=== PATIENT | female | born 1995 | race Hispanic/Latino ===

== ENCOUNTER 2017-06-01 09:22 | Emergency (ER) | payer OTHER ==
--- NOTE | 2017-06-01 11:17 | RAD ---
RIGHT WRIST THREE VIEWS: History: Pain. No trauma, no fall. Comparison: None. FINDINGS: There is negative ulnar variance. 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 Scaphoid is unremarkable. 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 POS: MAULIK
== END 2017-06-01 11:30 | disposition home or self-care (01) ==
LOC: ERS 09:22
DX: O9A.211 Injury, poisoning and certain other consequences of external causes complicating pregnancy, first trimester (principal); S63.501A Unspecified sprain of right wrist, initial encounter; O99.341 Other mental disorders complicating pregnancy, first trimester; F41.9 Anxiety disorder, unspecified; F31.9 Bipolar disorder, unspecified; F90.9 Attention-deficit hyperactivity disorder, unspecified type; Z3A.10 10 weeks gestation of pregnancy; X50.0XXA Overexertion from strenuous movement or load, initial encounter
CPT/HCPCS: 29125

== ENCOUNTER 2017-08-01 17:54 | Emergency (ER) | payer OTHER | END 2017-08-01 19:15 | disposition home or self-care (01) | LOC: ERS 17:54 | DX: O99.612 Diseases of the digestive system complicating pregnancy, second trimester (principal); K04.7 Periapical abscess without sinus; O99.342 Other mental disorders complicating pregnancy, second trimester; F41.9 Anxiety disorder, unspecified; F31.9 Bipolar disorder, unspecified; F90.9 Attention-deficit hyperactivity disorder, unspecified type | CPT/HCPCS: 99283 ==

== ENCOUNTER 2018-07-23 11:44 | Emergency (ER) | payer OTHER, SELFPAY ==
[2018-07-23 12:24] LABS: #Eosinphils 0.1 thou/uL (0.0-0.7); #Lymphocytes 2.2 thou/uL (1.20-3.40); #Monocytes 0.7 thou/uL (0.11-0.59); #Neutrophils 6.1 thou/uL (1.40-6.50); %Basophils 0.3 % (0.0-1.0); %Eosinophils 1.4 % (0.0-10.0); %Lymphocytes 24.2 % (21.0-51.0); %Monocytes 7.1 % (0.0-10.0); Hemoglobin 12.4 g/dL (12.0-16.0); Mean Corpuscular HGB CONC 32.9 g/dL (32.0-36.0); Mean Corpuscular Hemoglobin 26.8 pg (27.0-31.0); Mean Corpuscular Volume 81.5 fL (78.0-98.0); Mean Platelet Volume 8.7 fL (7.4-10.4); Platelet Count 339 thou/uL (130-400); Red Blood Cell (RBC) Count 4.63 mill/uL (4.20-5.40)
[2018-07-23 12:29] LABS: BHCG - Serum Negative (NEGATIVE); Pregs Control Background? CLEAR/WHITE (CLR/WHITE); Pregs Control Bar Appear? YES (CONTROL BAR)
[2018-07-23 12:31] LABS: Bilirubin Small (Negative); Blood, Urine Moderate (Negative); Clarity CLOUDY (Clear); Glucose, Urine (Dipstick) Negative (Negative); Leukocyte Small (Negative); Nitrite Positive (Negative); Protein, Urine (Dipstick) 30 mg/dL (Neg-Trace); Specific Gravity, Urine 1.025 (1.002-1.036); pH, Urine 5.5 (5.0-9.0)
[2018-07-23 12:34] LABS: Bacteria/HPF 4+ HPF (None Seen); Squamous Epithelial 0-3 HPF (0-3); WBC/HPF 21-50 HPF (0-3)
[2018-07-23 12:37] LABS: Pathc Cast-AUWi Flag 2.99 (0-2.49)
[2018-07-23 12:43] LABS: ALT (SGPT) 12 U/L (8-55); AST (SGOT) 14 U/L (5-34); Albumin 3.8 g/dL (3.5-5.0); Alkaline Phosphatase 55 U/L (40-150); Anion Gap 12 mmol/L (10-20); BUN (Urea Nitrogen) 7 mg/dL (7.0-18.7); Bilirubin, Total 0.6 mg/dL (0.2-1.2); Calc. Creatinine Clearance 0 mL/min (70-130); Calcium 9.4 mg/dL (7.8-10.44); Carbon Dioxide 25 mmol/L (22-29); Estimated GFR-MDRD 65; Globulin 2.4 g/dL (2.4-3.5); Glucose 90 mg/dL (70-105); Lipase 8 U/L (8-78); Potassium 3.9 mmol/L (3.5-5.1); Protein, Total 6.2 g/dL (6.0-8.3)
[2018-07-23 12:53] LABS: Chloride 106 mmol/L (98-107); Sodium 139 mmol/L (136-145)
[2018-07-23 12:56] LABS: Crystals/HPF 1+ AMORPH URATES HPF (Negative); Hyaline Casts/LPF 0-3 HYALINE CAST LPF (0-3 Hyaline); Other Casts/LPF None Seen LPF (0-3 Hyaline)
--- NOTE | 2018-07-23 13:04 | ULT ---
Sonogram right upper quadrant HISTORY: Right upper quadrant pain. FINDINGS: Gallbladder is incidentally incompletely distended. No stones visualized. Patient was repor tedly not tender directly at the gallbladder fossa at the time of the exam. Common duct is 0.2 cm. Liver unremarkable without focal mass or intrahepatic biliary dilatation. No f ree fluid. IMPRESSION: No significant abnormalities are demonstrated.
[2018-07-23] MEDS ORDERED: Ketorolac Tromethamine 30 MG/ML VIAL ONE (13:49)
[2018-07-23] MEDS ORDERED: cefTRIAXone\\ROCEPHIN 1 GM VIAL ONE (13:49)
[2018-07-23] MEDS ORDERED: Ondansetron PF 4 MG/2 ML Vial ONE (13:49)
--- NOTE | 2018-07-23 14:26 | CT ---
CT Stone Protocol 07/23/2018 1:42 PM HISTORY: Right upper quadrant abdominal pain and vomiting after eating. COMPARISON: 04/23/2015 Technique: Multiple contiguous axial images were obtained and a CT of the abdomen and pelvis without IV contrast . Coronal reformats were performed. FINDINGS: This examination is limited for the evaluation of solid organs and vascular structures due to the lac k of intravenous contrast. Lower Chest: within normal limits. Abdomen: Liver: There is an ill-defined low-density area within the anterior aspect medial segment left hepati c lobe likely related to focal area of fatty infiltration. The liver otherwise demonstrates a grossly normal nonenhanced CT appearance. Gallbladder: Incompletely distended. There is suggestion of slight increased density within the gallb ladder which could be related to either sludge or small calculi. Pancreas: within normal limits. Spleen: within normal limits. Adrenals: within normal limits. Kidneys: There are punctate nonobstructing renal calculi again seen bilaterally with largest calculus seen in the midportion left kidney measuring approximately 4 mm. No ureteral calculus is seen, and there is no hydronephrosis. Pelvis: Reproductive Organs: A 2.2 cm low-density structure is seen in the right adnexal region likely attrib utable to a small right ovarian cyst/dominant follicle. Ureters: within normal limits. Bladder: Urinary bladder is decompressed. Gas densities are seen in the nondependent portion of the u rinary bladder which may be attributable to recent catheterization. Clinical correlation suggested. Bowel: Normal caliber.The appendix is normal in caliber. Lymph Nodes: No enlarged lymph nodes. Peritoneum: No free fluid, free air, or fluid collection. Vessels: Abdominal aorta is normal in caliber.. Retroperitoneum: within normal limits. Abdominal Wall: within normal limits. Bones: within normal limits. IMPRESSION: 1. Nonobstructing bilateral nephrolithiasis. 2. The appendix is normal in caliber without CT evidence of appendicitis. 3. Probable focal area of fatty infiltration medial segment left hepatic lobe adjacent to the falcifo rm ligament. 4. Probable small right ovarian cyst. 5. Subtle increased density within the gallbladder lumen which could be related to sludge and/or tiny gallbladder calculi. 6. Foci of gas in the urinary bladder which may be related to recent catheterization. Clinical correl ation suggested.
== END 2018-07-23 15:06 | disposition home or self-care (01) ==
LOC: ERS 11:44
DX: N12 Tubulo-interstitial nephritis, not specified as acute or chronic (principal); F31.9 Bipolar disorder, unspecified; F90.9 Attention-deficit hyperactivity disorder, unspecified type; F41.9 Anxiety disorder, unspecified
CPT/HCPCS: 36415; 74176; 76705; 80053; 81003; 81015; 82550; 83605; 83690; 84703; 85025; 86850; 86900; 86901; 96365; 96375; J0696; J1885; J2405